=== PATIENT | female | born 1940 | race Caucasian/White ===

== ENCOUNTER 2016-06-03 15:14 | Observation (INO) | payer MEDICARE, BC ==
[~2016-06-03] VITALS: Ht 170.2 cm; Wt 77.5 kg
--- NOTE | ~2016-06-03 | HEMODYNAMI ---
PATIENT:CARLOS MARCH MEDICAL RECORD: [id number] : 40 [facility] ADMISSION DATE: 06/03/16 Generatedon:06/04/201617:06 Patient name: CARLOS MARCH Patient #: [id number] SSN: : 1940 Date of study: 06/04/2016 Page: Of Hemodynamic Procedure Report Patient Data Patient Demographics Procedure consent was obtained First Name: CARLOS Gender: Female Last Name: ANCA : 1940 [facility] Initial: F Age: 75 year(s) Patient #: [id number] Race: Additional ID: [id number] Contact details [address]: [address] [place] [address] 41 State: [place] City: [place] Zip code: [address] Past Medical History Allergies Allergen Reaction Date Comments Reported Demerol 06/04/2016 Other allergy 06/04/2016 Dilaudid Admission Admission Data Admission Date: 06/03/2016 Admission Time: 21:01 Admit Source: Emergency Insurance Payor: Private department health insurance, Medicare Room #: D.2137 Height (in.): 67 BSA: 1.87 (m2) Height (cm.): 170.18 BMI: 26.21 (kg/m2) Weight (lbs.): 167.35 Weight (kg.): 75.91 Medications upon Admission Medications Dosage Times Administered Last Remarks per Delivery Day Date and Time Aspirin Yes 06/04/2016 (any) 0:00 Clopidogrel Yes 06/04/2016 0:00 Lab Results Lab Result Date: 06/04/2016 Lab Result Time: 0:00 Biochemistry Name Units Result Min Max Creatinine mg/dl 1.2 --(---*)-- 0.6 1.3 Procedure Procedure Types Cath Procedure Diagnostic Procedure LHC LHC w/Coronaries Procedure Description Procedure Date Procedure Date: 06/04/2016 Procedure Start Time: 16:50 Procedure End Time: 17:02 Procedure Staff Name Function Casey Garcia MD Performing Physician Hyun Holder RT Scrub Buffie Gonzalez RN Nurse Richmond Hawkins RT Monitor Procedure Data Cath Procedure Fluoroscopy Diagnostic fluoroscopy Total fluoroscopy Time: 1.5 time: 1.5 min min Diagnostic fluoroscopy Total fluoroscopy dose: 276 dose: 276 mGy mGy Contrast Material Contrast Material Type Amount (ml) Isovue 300 58 Entry Location Entry Primary Successful Side Size Upsize Upsize Entry Closure Succes sful Closure Location (Fr) 1 (Fr) 2 (Fr) Remarks Device Remarks Femoral Right 5 Fr Exoseal artery Diagnostic catheters Device Type Used For End Catheter Placement Cordis 5Fr Pigtail LV Angiography Catheter (MP) Cordis 5Fr JL 4.0 Left Coronary Catheter (MP) Angiography Cordis 5Fr 3DRC Catheter Right Coronary (MP) Angiography Procedure Complications No complications Procedure Medications Medication Administration Route Dosage Oxygen NC 2 l/min Lidocaine 2% added to field 20 Heparin Flush Bag added to field 2 bags (1000units/500ml NS) 0.9% NaCl I.V. 100 ml/hr Versed I.V. 1 mg Fentanyl I.V. 50 mcg Versed I.V. 1 mg Fentanyl I.V. 50 mcg Versed I.V. 1 mg Fentanyl I.V. 50 mcg Versed I.V. 1 mg Fentanyl I.V. 50 mcg Versed I.V. 1 mg Versed I.V. 1 mg Hemodynamics Rest BSA: 1.87 (m2) HGB: 11.9 (g/dl) O2 Consumption: Estimated: 166.99 (ml/min) O2 Co nsumption indexed: Estimated:89.3 (ml/min/m) Heart Rate: 66 (bpm) Pressure Samples Time Site Value (mmHg) Purpose Heart Use Rate(bpm) 16:53 LV 159/10,14 EDP 61 Gradients Valve Time Site Site Mean SEP/DFP Peak To Heart Use 1 2 (mmHg) (sec/min) Peak Rate (mmHg) (bpm) Aortic 16:54 LV AO 64 Snapshots Pre Cath Intra NCS Post Cath Vital Signs Time Heart Resp SPO2 etCO2 [id number] NIBP (mmHg) Rhythm Pain Sedation Rate (ipm) (%) (mmHg) (mmHg) Status Level (bpm) 16:37:51 62 17 100 0 0 149/69(116) NSR 0 (11) 10(A) , No pain 16:42:13 64 19 96 0 0 129/67(99) NSR 0 (11) 10(A) , No pain 16:46:29 57 17 94 0 0 145/60(121) NSR 0 (11) 10(A) , No pain 16:50:45 54 16 95 0 0 127/56(110) NSR 0 (11) 9(A) , No pain 16:54:59 71 16 96 0 0 133/64(100) NSR 0 (11) 9(A) , No pain 16:59:15 71 15 94 0 0 118/63(87) NSR 0 (11) 9(A) , No pain 17:03:27 63 16 96 0 0 119/62(95) NSR 0 (11) 9(A) , No pain 17:05:57 60 16 97 0 0 117/54(95) NSR 0 (11) 10(A) , No pain Medications Time Medication Route Dose Verified Delivered Reason Notes Effe ctiveness by by 16:34:38 Oxygen NC 2 Casey Buffie used for l/min JoseWayne Gonzalez credit review analyst 16:36:29 Lidocaine 2% added 20ml Casey Casey for local to vial [facility] anesthetic field MD MOLINA 16:36:34 Heparin Flush added 2 Casey Casey used for Bag to bags [facility] procedure (1000units/500ml field MD MOLINA NS) 16:36:44 0.9% NaCl I.V. 100 Casey Buffie Per ml/hr JoseWayne Gonzalez RN physician 16:41:45 Versed I.V. 1 mg Casey Buffie for JoseWayne Gonzalez RN sedation 16:41:51 Fentanyl I.V. 50 Casey Buffie for mcg [place] Gonzalez RN sedation 16:45:30 Versed I.V. 1 mg Casey Buffie for Jose Gonzalez RN sedation 16:45:35 Fentanyl I.V. 50 Casey Buffie for mcg [place] Gonzalez RN sedation 16:51:38 Versed I.V. 1 mg [facility] 16:51:46 Fentanyl I.V. 50 Casey Buffie for mcg [place] Gonzalez RN sedation 16:54:43 Versed I.V. 1 mg Casey Buffie for Jose Gonzalez RN sedation 16:54:48 Fentanyl I.V. [address] for mcg [facility] [place] Gonzalez RN sedation 16:57:51 Versed I.V. [address] [facility] [place] Gonzalez RN sedation 17:00:56 Versed I.V. 1 [address] [facility] [place] Gonzalez RN sedation Procedure Log Time Note 16:11:47 Thang Gonzalez RN sent for patient. Start room use. 16:11:49 Time tracking: Regular hours 16:11:53 Plan of Care:Hemodynamics will remain stable., Cardiac rhythm will remain stable., Comfort level will be maintained., Respiratory function will remain adequate., Patient/ family verbilizes understanding of procedure., Procedure tolerated without complication., Recovers from procedure without complications.. 16:14:59 Admit Source: Emergency department 16:15:12 Patient Height : 67 inches 16:15:16 Patient Weight : 167.35 lbs 16:18:30 Insurance Payor : Private health insurance, Medicare 16:19:15 Patient allergic to Demerol 16:19:24 Patient allergic to Other allergyDilaudid 16:23:06 Lab Result : Hemoglobin 11.9 g/dl 16:23:17 Lab Result : Creatinine 1.2 mg/dl 16:23:20 Diagnostic Cath Status : Urgent 16:25:15 Patient received from PCU to CCL 2 Alert and oriented. Tansferred to table in Supine position. 16:25:16 Warm blankets applied, and isaias hugger turned on for patient comfort. 16:25:16 Correct patient and procedure confirmed by team. 16:25:18 Signed procedure consent form obtained from patient. 16:25:18 ECG and BP/O2 sat monitors applied to patient. 16:34:38 Oxygen 2 l/min NC was given by Thang Gonzalez RN; used for procedure; 16:36:29 Lidocaine 2% 20ml vial added to field was given by Casey Garcia MD; for local anesthetic; 16:36:34 Heparin Flush Bag (1000units/500ml NS) 2 bags added to field was given by Casey Garcia MD; used for procedure; 16:36:43 Vital chart was started 16:36:44 0.9% NaCl 100 ml/hr I.V. was given by Thang Gonzalez RN; Per physician; 16:36:45 Baseline sample Acquired. 16:36:49 Rhythm: sinus rhythm 16:36:50 Full Disclosure recording started 16:38:06 H&P Date Dictated: 06/03/2016 Within 30 days and on chart.. 16:38:07 Pre-procedure instructions explained to patient. 16:38:08 Pre-op teaching completed and patient verbalized understanding. 16:38:12 Family in patients room. 16:38:14 Patient NPO since Midnight. 16:38:16 Is the patient allergic to Iodine/contrast media? No. 16:38:18 Is patient on blood thinner?No 16:38:21 Patient diabetic? Yes. 16:38:45 If diabetic: On Metformin? Yes 16:38:46 If on Metformin: Last Dose? 06/04/2016 16:38:49 Previous problem with sedation/anesthesia? No ? 16:38:50 Snore? No 16:38:51 Sleep apnea? No 16:38:52 Deviated septum? No 16:38:52 Opens mouth fully? Yes 16:38:53 Sticks out tongue? Yes 16:38:55 Airway obstruction? No ? 16:39:03 Dentures? No ? 16:39:06 Modified Rolando's test Ulnar < 7 seconds 16:39:09 Patient pain scale 0/10 ?. 16:39:14 IV patent on arrival in right forearm with 0.9% NaCl at [facility]. 16:39:19 Lab results completed and on chart. 16:39:22 Right Radial & Right Groin area was prepped with chlora-prep and draped in sterile fashion 16:39:23 Alarms reviewed by R. N. 16:39:23 Sharps counted by scrub and verified by R.N. 16:39:26 Use device set Radial Dx 16:39:27 Tegaderm 4 x 4 opened to sterile field. 16:39:28 Acist Manifold opened to sterile field. 16:39:28 Acist Hand Control opened to sterile field. 16:39:30 Acist Syringe opened to sterile field. 16:39:30 Cardinal Cath Pack opened to sterile field. 16:39:32 Bag Decanter opened to sterile field. 16:39:32 Terumo 6Fr Slender Glidesheath opened to sterile field. 16:39:33 St Shiraz 260cm J .035 wire opened to sterile field. 16:39:39 ACC Patient presents with Unstable Angina CCS Anginal Class 3--Marked limitation of physical activity, angina occurs with ordinary activity.. 16:39:44 Physician arrived 16:39:45 --------ALL STOP TIME OUT------ 16:39:45 Final Timeout: patient, procedure, and site verified with staff and physician. All members of the team are in agreement. 16:39:47 Right Radial & Right Groin site verified by team. 16:39:49 Physical assessment completed. ASA score P 2 - A patient with mild systemic disease as per Casey Garcia MD. 16:39:51 Sedation plan: IV Moderate Sedation Versed, Fentanyl 16:41:45 Versed 1 mg I.V. was given by Thang Gonzalez RN; for sedation; 16:41:51 Fentanyl 50 mcg I.V. was given by Thang Gonzalez RN; for sedation; 16:45:30 Versed 1 mg I.V. was given by Thang Gonzalez RN; for sedation; 16:45:35 Fentanyl 50 mcg I.V. was given by Thang Gonzalez RN; for sedation; 16:50:12 Procedure started. 16:50:17 Local anesthetic to right radial artery with Lidocaine 2% by Casey Garcia MD.INITIAL ACCESS ONLY 16:50:24 Local anesthetic to right femoral artery with Lidocaine 2% by Casey Garcia MD.ADDITIONAL ACCESS 16:50:34 A 5 Fr sheath was inserted into the Right Femoral artery 16:50:51 PT HAS RADIAL LOOP 16:51:01 Use device set Multipack Set 16:51:05 Cordis Infinity 5Fr Multipack catheter opened to sterile field. 16:51:11 Terumo 5Fr [place] Sheath opened to sterile field. 16:51:38 Versed 1 mg I.V. was given by Thang Gonzalez RN; for sedation; 16:51:46 Fentanyl 50 mcg I.V. was given by Thang Gonzalez RN; for sedation; 16:52:11 Zero performed for pressure channel P1 16:53:09 A Cordis 5Fr Pigtail Catheter (MP) was advanced over the wire and used for LV Angiography. 16:53:13 LV angiography performed. 16:53:17 LV gram done using GUTIERREZ 16:53:22 LV hemodynamics recorded. 16:53:26 Injector settings: Ml/sec: 10, Volume: 20, 16:54:08 EF : 55 % 16:54:10 Catheter removed. 16:54:15 A Cordis 5Fr JL 4.0 Catheter (MP) was advanced over the wire and used for Left Coronary Angiography. 16:54:43 Versed 1 mg I.V. was given by Thang Gonzalez RN; for sedation; 16:54:48 Fentanyl 50 mcg I.V. was given by Thang Gonzalez RN; for sedation; 16:55:04 LCA angiography performed. 16:56:50 Catheter removed. 16:56:57 A Cordis 5Fr 3DRC Catheter (MP) was advanced over the wire and used for Right Coronary Angiography. 16:57:51 Versed 1 mg I.V. was given by Thang Gonzalez RN; for sedation; 16:58:14 RCA angiography performed. 16:58:16 Catheter removed. 16:58:23 Contrast amount:Isovue 300 58ml. 16:58:52 Sheath removed intact; hemostasis achieved with Exoseal to the Right Femoral artery. 16:58:55 Procedure ended.(Physican Out) 16:59:57 Fluoroscopy time 01.50 minutes. 17:00:02 Fluoroscopy dose: 276 mGy 17:00:02 Flurop Dose total: 276 17:00:04 Sharps counted by scrub and verified by R.N. 17:00:04 Insertion/operative site no bleeding no hematoma. 17:00:07 Post-op/insertion site Right Femoral artery dressed using a 4 x 4 and Tegaderm. 17:00:11 Post right femoral artery:stable 17:00:12 Post Procedure Pulses reassessed and unchanged 17:00:15 Post procedure: right dorsailis pedis pulse 1+ Palpable, but thready & weak; easily obliterated. 17:00:20 Post procedure rhythm: sinus rhythm 17:00:22 Post procedure instruction explained to patient.Patient verbalizes understanding. 17:00:31 Cordis 5Fr Exoseal opened to sterile field. 17:00:56 Versed 1 mg I.V. was given by Thang Gonzalez RN; for sedation; 17:02:39 Procedure and supply charges have been captured, reviewed, submitted and are correct. 17::43 Procedure Complication : No complications 17:02:45 Vital chart was stopped 17:02:45 See physician's report for complete and final results. 17:02:46 Report given to PCU. 17:02:49 Patient transfered to PCU with Bed. 17:02:51 Procedure ended. 17:02:51 Full Disclosure recording stopped 17:02:54 End room use (Document Last) Device Usage Item Name Manufacture Quantity Catalog Hospital Part Current Minimal Lot# / Number Charge Number Stock Stock Serial# Code Tegaderm 4 3M 1 [id number] 026463 397134 5 x 4 Acist Acist 1 92962 747342 998907 309065 5 Manifold Medical Systems Inc Acist Hand Acist 1 09894 627976 643153 881648 5 Control Medical Systems Inc Acist Acist 1 06407 050507 553446 925657 20 Syringe Medical Systems Inc Cardinal Cardinal 1 [id number] 496735 28708 300387 5 Cath Pack Health Bag Microtek 1 2002S 611063 76786 636229 5 DecSOLOMO Technology [employer] Inc. Terumo 6Fr Terumo 1 [id number] 603832 092863 639907 [address] St Shiraz 1 540530 556157 407921 817468 30 260cm J .035 wire Cordis Cardinal 1 [id number] 684153 95095 879030 30 Infinity Health 5Fr Multipack catheter Terumo 5Fr Terumo 1 [id number] 241267 230053 986538 40 [place] Sheath Cordis 5Fr Cardinal 1 694834 5 Pigtail Health Catheter (MP) Cordis 5Fr Cardinal 1 884073 5 JL 4.0 Health Catheter (MP) Cordis 5Fr Cardinal 1 213389 5 3DRC Health Catheter (MP) Cordis 5Fr Cardinal 1 EX500 151724 778892 166628 10 [email or web address] Signature Audit [place] Stage Time Signature Unsigned Intra-Procedure 06/04/2016 Richmond Hawkins 5:06:48 PM RT(R) Signatures Monitor : Richmond Hawkins RT Signature : Date : Time : [id number] [place] [address]
[~2016-06-03 15:14] MED LIST: ACIDOPHILUS LAC1 CAP PO; ACTOS15 MG PO; ARMOUR THYROID90 MG PO; AUGMENTIN 875-11 TAB PO; BAYER CHEWABLE81 MG PO; CALCIUM 600 +1 EAC3 PO; EXELON PO; FLAGYL500 MG PO; GLUCOPHAGE500 MG PO; GLUCOSAMINE & C1 CAP PO; LUTEIN20 MG PO; MACROBID100 MG PO; METAMUCIL PACKE1 PKT PO; MULTIPLE VITAMI1 TA1 PO; PRAVACHOL20 MG PO; VITAMIN D3400 UNI1 PO; ZANTAC150 MG PO; ZOFRAN4 MG PO
[2016-06-03 20:04] LABS: BASOPHILS 0.4 % (0.0-2.0); HEMOGLOBIN 11.9 g/dL (12-16); IMMATURE GRANULOCYTES 0.1 % (0-5); LYMPHOCYTES 41.4 % (15-50); MCH 29.7 pg (26.0-34.0); MCHC 32.2 g/dL (31.0-37.0); MCV 92.3 fL (80.0-100.0); MEAN PLATELET VOLUME 8.6 fL (7.4-10.4); MONOCYTES 9.5 % (2-11); NEUTROPHILS 45.6 % (40-80); PLATELET COUNT 230 10x3/uL (130-400); RBC 4.01 10x6/uL (4.00-5.40); RDW 15.6 % (11.5-14.5)
[2016-06-03 20:28] LABS: CALC OSMOLALITY 285 mosm/kg (275-300); CALCIUM 9.4 mg/dL (8.5-10.1); CARBON DIOXIDE 28.3 mmol/L (21.0-32.0); CHLORIDE - SERUM 102 mmol/L (98-107); CREATININE - SERUM 1.1 mg/dL (0.6-1.3); GLUCOSE 130 mg/dL (74-106); POTASSIUM - SERUM 4.2 mmol/L (3.5-5.1); SODIUM 140 mmol/L (136-145); UREA NITROGEN 27 mg/dL (7-18); eGFR NON AFRICAN AMERICAN 51 mL/min (90-120)
[2016-06-03 20:29] LABS: TROPONIN-I < 0.017 ng/mL (0.000-0.060)
--- NOTE | 2016-06-03 22:30 | NUR ---
RECEIVED TO ROOM 2137 ALERT AND ORIENTED X3 74 Y/O FEMALE SEEN BY DR SHER FOR SYNCOPY VIA W/C FROM ER. ORIENTATION TO UNIT ROOM, BED, C/L. BATHROOM, AND TV GIVEN WITH UNDERSTANDING VERBALIZED. HOB UP SR UP X2, C/L IN REACH. CONTINUE TO MONITOR.
[2016-06-03 23:15] VITALS: BP 141/57
[2016-06-04] MEDS ORDERED: PRAVACHOL20 MG PO (00:07)
--- NOTE | 2016-06-04 00:11 | NUR ---
LYING ON LEFT SIDE IN BED READING, RESP EVEN AND UNLAB, ON ROOM AIR W/O DIFF. TELEMETRY IN PLACE SHOWING HR SR PER SHOT POLISHER. UP AD LUCINDA W/O DIFF. VOICES NO C/O PAIN OR DISCOMFORT AT THIS TIME. CONTINUE TO MONITOR. C/L IN REACH.
[2016-06-04 01:11] VITALS: Ht 170.2 cm; Wt 77.5 kg
[2016-06-04 01:44] VITALS: BP 136/57
--- NOTE | 2016-06-04 03:16 | NUR ---
AWAKE, ALERT, GETTING BLOOD DRAWN FOR AM LAB. GENI WELL. C/L IN REACH.
[2016-06-04 06:10] VITALS: BP 117/44
[2016-06-04 08:08] VITALS: BP 145/63
--- NOTE | 2016-06-04 08:26 | NUR ---
PROVIDED PT WITH MORNING MEDICATIONS. SHIFT ASSESSMENT COMPLETED. CONSENTS OBTAINED FOR HEART CATH. PT RESTING QUIETLY IN BED. DENIES ANY CURRENT PAIN OR NEEDS. CL IN REACH. WILL CPOC.
[2016-06-04 08:28] LABS: ANION GAP 16.7 mmol/L (8-16); CALCIUM 9.3 mg/dL (8.5-10.1); CARBON DIOXIDE 23.8 mmol/L (21.0-32.0); CREATININE - SERUM 1.2 mg/dL (0.6-1.3); POTASSIUM - SERUM 4.5 mmol/L (3.5-5.1)
[2016-06-04 11:39] VITALS: BP 130/52
--- NOTE | 2016-06-04 13:07 | NUR ---
PREOP CALLED AND COMPLETED. PT REFUSED HER VALIUM R/T FEELING TOO "LOOPY" PT HAS NS WITH EXTENSION TUBING TO R.FA PIV WITH DRSG CDI AND SWAB CAPS IN USE. PT AWAITING DRY WALL INSTALLER. NO FURTHER NEEDS. WILL CPOC.
[2016-06-04 15:42] VITALS: BP 104/45
--- NOTE | 2016-06-04 19:30 | NUR ---
ASSESSMENT COMPLETE, DENIES NEEDS AT THIS TIME. ALERT AND ORIENTED X3, RESP EVEN AND UNLAB WITH TELEMETRY SHOWING HR SR PER SIEBEL DEVELOPER. RT GROIN DRSG CDI PPP BILAT WITH SKIN WARM AND DRY. RT FA SL INTACT WITH NO R/S NOTED AT SITE. UP AD LUCINDA W/O DIFF. NO SCDS BEING WORN AT THIS TIME. CONTINUE TO MONITOR. C/L IN REACH.
[2016-06-04 20:11] VITALS: BP 145/56
--- NOTE | 2016-06-05 01:51 | NUR ---
EYES CLOSED, RESP EVEN AND UNLAB WITH NO S/S OF ACUTE DISTRESS NOTED. C/L IN REACH.
[2016-06-05 02:18] VITALS: BP 131/62
[2016-06-05 05:05] LABS: BASOPHILS 0.4 % (0.0-2.0); EOSINOPHILS 3.9 % (0-7); HEMATOCRIT 37.4 % (36.0-48.0); HEMOGLOBIN 11.8 g/dL (12-16); LYMPHOCYTES 31.4 % (15-50); MCH 28.9 pg (26.0-34.0); MCHC 31.6 g/dL (31.0-37.0); MCV 91.4 fL (80.0-100.0); MEAN PLATELET VOLUME 8.6 fL (7.4-10.4); MONOCYTES 9.8 % (2-11); NEUTROPHILS 54.5 % (40-80); PLATELET COUNT 221 10x3/uL (130-400); RBC 4.09 10x6/uL (4.00-5.40); RDW 15.1 % (11.5-14.5); WBC 5.7 10x3/uL (4.8-10.8)
[2016-06-05 05:37] LABS: ALBUMIN 3.1 g/dL (3.4-5.0); ANION GAP 10.2 mmol/L (8-16); BILIRUBIN - TOTAL 0.3 mg/dL (0.2-1.3); CALCIUM 8.4 mg/dL (8.5-10.1); CARBON DIOXIDE 29.3 mmol/L (21.0-32.0); POTASSIUM - SERUM 4.5 mmol/L (3.5-5.1); PROTEIN - SERUM 6.2 g/dL (6.4-8.2)
[2016-06-05 06:42] VITALS: BP 146/59
--- NOTE | 2016-06-05 08:09 | NUR ---
ASSESSMENT DONE. PT A/O. NO DISTRESS NOTED. NPO FOR CTA OF CAROTID. PT REQUEST NURSE CALL GEOPHYSICAL PROSPECTOR AND ASK DIVERSIFIED CROPS SUPERVISOR TO BRING HER A FEW BOOKS. CALL LIGHT WITH IN REACH. WILL CONT. TO MONITOR.
[2016-06-05 08:56] VITALS: BP 151/57
--- NOTE | 2016-06-05 09:35 | NUR ---
RESTS IN BED WITH CALL LIGHT IN REACH. NO NEEDS VOICED AT THIS TIME. WILL MONITOR.
--- NOTE | 2016-06-05 10:26 | NUR ---
IV TO RIGHT FOREARM INFILTRATED. RESITED TO RIGHT FOREARM WITH 20G X1 ATTEMPT.
[2016-06-05 12:28] VITALS: BP 132/58
--- NOTE | 2016-06-05 14:23 | NUR ---
PT HAD CTA, AND IS NOW SITTING UP IN BED EATING. SHE WANTS A SHOWER AFTER SHE IS FINISHED EATING, BUT WANTS AID TO SHOWER HER. PT IS A/O, AND WALKS WITH A STEADY GAIT. SHE WAS C/O EARLY THIS MORNING ABOUT WANTING TO GO HOME BECAUSE SHE "FELT PERFECT." AID AND NURSE TOLD PT THAT WE WOULD SET UP HER SUPPLIES FOR THE SHOWER, AND SHE COULD SHOWER HERSELF BUT IF SHE BECAME WEAK OR IN DISTRESS THERE WAS A STRING SHE COULD PULL IN THE BATHROOM THAT WOULD CALL FOR HELP. ALSO OFFER TO SET PT UP WITH A BED BATH. PT DID NOT RESPOND TO EITHER OPTION.
[2016-06-05 15:44] VITALS: BP 111/87
--- NOTE | 2016-06-05 16:36 | NUR ---
RATIONAL FOR SCD'S EXPLAINED TO PT. PT REFUSED SCD'S.
--- NOTE | 2016-06-05 20:55 | NUR ---
SPOKE WITH DR CORONADO, EXPAINED THAT PT IS INSISTING ON GETTING EYES DROPS, THAT PT STATES THAT SHE HAS A HISTORY OF MACULAR DEGENERATION AND WILL GO BLIND WITH OUT HER A-RED EYE DROPS, ALSO EXPALINED THAT OUR PHARMACY DOESNT CARRY A-RED BUT HAS A FORMULARY SUBSTITUTE (SYSTANE). ORDERS GIVEN OF TO GIVE SYSTANE EYE DROPS.
--- NOTE | 2016-06-05 21:05 | NUR ---
INFORMED PT THAT I SPOKE WITH DR TARIQ AND GOT AN ORDER FOR EYE DROPS, PT STATED THAT SHE DOESNT TAKE EYE DROPS, THAT SHE TAKES A PILL CALLED A-RED AND THAT THE DOCTOR ALREADY ORDERED HER OCUVITE AND SHE JUST NEEDED HER FIRST DOSE.
--- NOTE | 2016-06-05 21:09 | NUR ---
HS MEDS GIVEN WITH FRESH ICE WATER. PT STATED THAT SHE HAS ALREADY RECIEVED THE OCCUVIT TAB EARLIER TODAY BUT DIDNT REALIZE WHAT IT WAS AND THAT SHE NO LONGER NEEDED EYE DROPS.
[2016-06-05 22:30] VITALS: BP 142/53
[2016-06-06 01:21] VITALS: BP 113/44
--- NOTE | 2016-06-06 04:20 | NUR ---
LYING IN BED WITH EYES CLOSED, CALL LIGHT IN REACH. WILL CONTINUE WITH PLAN OF CARE.
[2016-06-06 05:07] LABS: ANION GAP 7.8 mmol/L (8-16); CALCIUM 8.8 mg/dL (8.5-10.1); CREATININE - SERUM 1.1 mg/dL (0.6-1.3); POTASSIUM - SERUM 4.8 mmol/L (3.5-5.1)
[2016-06-06 05:09] LABS: APTT 28.5 SECONDS (22.8-39.4); INR 1.06 (0.85-1.17); PROTIME 13.7 SECONDS (11.6-15.0)
--- NOTE | 2016-06-06 05:22 | NUR ---
RESTING WITH EYES CLOSED, RESPERATIONS EVEN, NO S/S DISTRESS NOTED.
[2016-06-06 05:59] VITALS: BP 146/56
[2016-06-06] MEDS ORDERED: ASPIRIN325 MG PO (06:57)
[2016-06-06 07:49] VITALS: BP 127/52
--- NOTE | 2016-06-06 08:05 | NUR ---
AM ROUNDING- PT SITTING UP IN BED READING HER BOOK. PT IS STATING SHE IS GOING HOME TODAY. PT TOOK HEART MONITOR OFF BECAUSE SHE SAID SHE IS GOING HOME AND THE DOCTOR STATED SHE DIDN'T HAVE A "HEART PROBLEM" AND SHE DID NOT NEED HER MONITOR. PT REFUSES SCD'S. UP AD LUCINDA. ALERT AND ORIENTED. IV SEEN TO LEFT FOREARM THAT IS SALINE LOCKED AND PATENT. NO NEED AT CURRENT TIME. WILL CONTINUE TO MONITOR.
--- NOTE | 2016-06-06 09:49 | NUR ---
Patient Name: CARLOS MARCH Admission Status: ER Accout number: [id number] Admission Date: 06-05-2016 : 1940 Admission Diagnosis: Attending: LUIS Current LOS: 1 Anticipated DC Date: 06-06-2016 Planned Disposition: Home Primary Insurance: MEDICARE A & B Discharge Planning Comments: * Is the patient Alert and Oriented? Yes 0 * How many steps to enter\exit or inside your home? NONE 0 * PCP DR. SHER 0 * Pharmacy [facility] 0 * Preadmission Environment Home Alone 0 * ADLs Independent 0 * Equipment None 0 * Other Equipment [facility] MEDICAL EQUIPMENT PROVID[facility] 0 * List name and contact numbers for known caregivers / representatives who currently or will assist patient after discharge: ROWAN LAY, FRIEND, 0 * Community resources currently utilized None 0 * Please name any agencies selected above. NONE 0 * Additional services required to return to the preadmission environment? No 0 * Can the patient safely return to the preadmission environment? Yes 0 * Has this patient been hospitalized within the prior 30 days at any hospital? No 0 CM MET WITH PT IN ROOM TO DISCUSS DISCHARGE PLANNING AND NEEDS. PT REPORTS LIVING AT HOME INDEPENDENTLY AND ALONE. PT HAS NO MEDICAL EQUIPMENT AND NO OUTSIDE SERVICES ASSISTING IN THE HOME. CM DISCUSSED AVAILABILITY OF HOME HEALTH, REHAB SERVICES AND MEDICAL EQUIPMENT. PT DENIES DISCHARGE NEEDS, WILL CALL DR. SHER IF SHE FEELS SHE NEEDS ANY HOME HEALTH LATER ON. PT REPORTS HER NEIGHBOR WILL PICK HER UP FOR DISCHARGE HOME. IMPORTANT MESSAGE FROM MEDICARE PROVIDED AND EXPLAINED. Contract Modeler: Darion Kapoor
[2016-06-06] MEDS ORDERED: GLUCOPHAGE500 MG PO (10:10)
[2016-06-06] MEDS ORDERED: ACTOS15 MG PO (10:11)
--- NOTE | 2016-06-06 10:34 | NUR ---
RUFUS HAMILTON, SLAB INSTALLER STATED THAT SHE REMOVED PTS IV CATHETER TO LEFT FOREARM WITH CATH TIP INTACT. PT IS TO D/C HOME TODAY AND REQUESTED IV TO COME OUT.
--- NOTE | 2016-06-06 10:42 | NUR ---
EXPLAINED PTS D/C PAPERWORK TO PT. D/C PAPERWORK SIGNED AND DATED AND PLACED IN CHART. 1043- PT D/C HOME VIA WHEELCHAIR.
--- NOTE | 2016-06-07 13:36 | OP ---
PATIENT NAME: CARLOS MARCH MEDICAL RECORD: [id number] :40 LOCATION:D.M2 D.2137 ADMISSION DATE:06/05/16 SURGEON: CARLOS HOOD MD DATE OF OPERATION: 06/04/2016 PROCEDURE: Left heart catheterization, selective coronary angiography, right femoral approach. CATHETERS: A 5-Macedonian sheath, 5/4 left and right Kenyatta, 5/4 pig. The procedure was well tolerated. The patient returned to the domínguez, sheath removed. Adequate hemostasis was obtained. FINDINGS: Left ventriculography in 30-degree GUTIERREZ view: Normal wall motion, normal systolic function. CORONARY ANATOMY: LEFT MAIN: Left main is free of disease. LAD: LAD free in the diagonal system. CIRCUMFLEX: Free of disease in the marginal system. RIGHT CORONARY ARTERY: Dominant artery, gives rise to PDA, free of disease. IMPRESSION: Normal systolic function. Normal coronary anatomy. TRANSINT:[id number] Voice Confirmation ID: [id number] DOCUMENT ID: [id number] CARLOS HOOD MD at 1336 CC: [id number] DICTATION DATE: 06/04/16 1706 CONFLICT RESOLUTION PROFESSIONAL: 06/04/16 2151 DIS IN 06/06/16 [id number] [place] [address]
--- NOTE | 2016-06-12 13:16 | EC ---
PATIENT:CARLOS MARCH DATE OF SERVICE: 06/03/16 SEX: F MEDICAL RECORD: [id number] DATE OF : [birth year] LOCATION:D.M2 D.213 AGE OF PATIENT: 75 ADMISSION DATE: 06/03/16 REFERRING PHYSICIAN: INTERPRETING PHYSICIAN: JOSE BATES M.D. ECHOCARDIOGRAM REPORT ECHO CHARGES 4 ECHO COMPLETE CLINICAL DIAGNOSIS: CHEST PAIN ECHOCARDIOGRAPHIC MEASUREMENTS (adult normal given) AC root (d.<3.7cm) 3.8 LV Septum d (<1.2 cm> 1.5 Valve Excursion 1.7 LV Septum (systole) 1.7 Left Atria (s.<4.0cm> 4.0 LVPW d(<1.2cm) 1.3 RV (d.<2.3cm) 4.4 LVPW (sytole) 1.7 LV diastole(<5.6CM) 4.7 MV E-F(>70mm/sec) LV systole 3.4 LVOT Diameter 2.0 MV exc.(>10mm) 1.5 Est.ejection fraction (50-75%) Pericardial Effusion N DOPPLER: LVIT A 110 E 62.0 LA RVSP 40 LVOT 104 AOP1/2T 1141 Asc. Ao 128 RVOT 78 RA PA 14 AV Gradient Peak 6.59 AV Mean 3.15 AV Area 2.5 MV Gradient Peak 5.0 MV Mean 1.52 MV Area COMMENTS: Bearing Inspector: Buck ROSARIO Industrial Furnace Fabricator:2 Dr. Bates TAPE# PACS DATE OF SERVICE: 06/04/2016 REFERRING PHYSICIAN: Charan Aquino DO. INDICATION: Chest pain. DESCRIPTION: Left ventricle demonstrates left ventricular hypertrophy. No wall motion abnormalities are seen. Estimated ejection fraction is 50% to 55%. Mitral valve is structurally normal. There is mild regurgitation noted. Left atrium is mildly dilated. The aortic valve is trileaflet. There is mild ECHOCARDIOGRAM REPORT [id number] CARLOS MARCH insufficiency seen, but no evidence of stenosis. Right ventricle is mildly dilated. Tricuspid valve is structurally normal. There is mild to moderate regurgitation noted. Right ventricular systolic pressure is elevated at 40 mmHg. There is no pericardial effusion noted. IMPRESSION: 1. Left ventricular hypertrophy with preserved ejection of 50% to 55%. 2. Mild mitral regurgitation. 3. Mild aortic insufficiency. 4. Mild to moderate tricuspid regurgitation with elevated pulmonary pressures. TRANSINT:[id number] Voice Confirmation ID: [id number] DOCUMENT ID: [id number] JOSE BATES M.D. at 1316 CC: [id number] DICTATION DATE: 06/04/16 1609 FISHING FLOATS ASSEMBLER: 06/04/162222 DIS IN 06/06/16 [id number] [place] [id number]
[2016-06-17] MEDS ORDERED: FISH OIL 1,0001 CA1 PO (13:04)
[2016-06-17] MEDS ORDERED: AREDS 2 PO (13:06)
[2016-06-17] MEDS ORDERED: METAMUCIL1042 GM PO (13:07)
[2016-06-17] MEDS ORDERED: ZANTAC150 MG PO (13:08)
[2016-06-17] MEDS ORDERED: TUMS500 MG PO (13:09)
[2016-06-17] MEDS ORDERED: GLUCOPHAGE500 MG PO (13:10)
== END 2016-06-06 10:43 | disposition home or self-care (01) ==
LOC: D.ER 15:14 → OBSVTIME 21:01 → D.M2 21:01
PROVIDERS: Emergency Medicine; Family Medicine; Internal Medicine Cardiovascular Disease; ADMIT Family Medicine
DX: R07.89 Other chest pain (principal); R55 Syncope and collapse; H53.8 Other visual disturbances; I65.23 Occlusion and stenosis of bilateral carotid arteries; I10 Essential (primary) hypertension; H35.30 Unspecified macular degeneration; E11.9 Type 2 diabetes mellitus without complications; Z87.891 Personal history of nicotine dependence

== ENCOUNTER 2016-06-18 06:05 | Inpatient (IN) | payer MEDICARE, BC ==
--- NOTE | 2016-06-15 12:06 | HP ---
PATIENT: CARLOS MARCH MEDICAL RECORD: [id number] ACCOUNT: [id number] LOCATION:[facility] : 40 ADMISSION DATE: 06/18/16 HISTORY AND PHYSICAL EXAMINATION CARLOS King (75yo, F) ID# [id number]. Date/Time06/10/2016 10:58OPXSZ11/13/1941Service Dept.NP_[facility] ClinicProviderEDJULIO CESAR ENCISO MDInsuranceMed Primary: [place] ([place]) Insurance # : [id number] Referring Provider Name : GIANA SHER Employer Name : RETIRED Med Secondary: [place] Insurance # : [id number] Policy/Group # : [id number] Referring Provider Name : GIANA SHER Employer Name : RETIRED Prescription: [place] - Member is eligible. Chief Complaint Carotid stenosis CTA carotid Patient's Care Team Referring Provider (): GIANA SHER: [address] [place] [phone], , News Broadcaster: CARLOS HOOD MD Patient's Pharmacies [facility] ([facility]): [address] [facility] [id number], , Vitals BP:132/82 sitting R arm 06/10/2016 10:12 am 140/70 sitting L arm 06/10/2016 10:12 amHR:80R/R 06/10/2016 10:13 amHt:5 ft 8 in 06/10/2016 10:12 amWt:168 lbs 06/10/2016 10:10 amNotes:murmur 06/10/2016 10:13 amBMI:25.5 06/10/2016 10:12 amAllergies Reviewed Allergies CODEINEDONEPEZILLEVAQUINLISINOPRILSYNTHROIDMedications Reviewed Medications Calcium 600 + D(3) 600 mg (1,500 mg)-400 unit tablet Take 2 tablet(s) every day by oral route.06/07/16 enteredCindy Browncholecalciferol (vitamin D3) 400 unit capsule Take 1 capsule(s) every day by oral route.06/07/16 Alec Glaserglucosamine 116 mg-chondroitin 100 mg-dietary supplement #25 capsule Take 1 capsule(s) every day by oral route.06/07/16 enteredCinguzman BrownmetFORMIN 500 mg lfeezg73/10/17 filledPRIMEpioglitazone 15 mg zbhafn79/10/17 filledPRIMEPravachol 20 mg tablet Take 1 tablet(s) every day by oral route.06/07/16 enteredCindy Brownthyroid (pork)06/07/16 enteredCinguzman BrownProblems Reviewed Problems Carotid artery stenosis - Onset: 06/07/2016, Bilateral Family History Discussed Family History Mother- Malignant neoplastic disease - Migraine, thyroid disorderFather- Heart diseaseMaternal Grandfather- Cerebrovascular accidentPaternal Grandmother- Cerebrovascular accidentSocial History Discussed Social History HISTORY AND PHYSICAL [id number] CARLOS MARCH Cardiology Smoking Status: Former smoker High Cholesterol: Y High blood pressure: Y Marital status: Surgical History Reviewed Surgical History Removal of thyroid Hysterectomy/revise vagina 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 HPI Cerebral Vascular Disease Reported by patient. Quality: tingling ("left side"); tunnel vision; dizziness; blurred vision Aggravating Factors: position change ROS Patient reports vision change but reports no dry eyes and no irritation. She reports shortness of breath when walking but reports no chest pain, no arm pain on exertion, no shortness of breath when lying down, no palpitations, and no known heart murmur. She reports muscle aches, arthralgias/joint pain, and back pain but reports no muscle weakness and no swelling in the extremities. She reports numbness and dizziness but reports no loss of consciousness, no weakness, no seizures, and no headaches. She reports no fever, no night sweats, no significant weight gain, no significant weight loss, and no exercise intolerance. She reports no difficulty hearing and no ear pain. She reports no frequent nosebleeds and no nose/sinus problems. She reports no so r e throat, no bleeding gums, no snoring, no dry mouth, no mouth ulcers, no oral abnormalities, and no teeth problems. She reports no jugular vein distension and no swollen glands. She reports no cough, no wheezing, no shortness of breath, and no coughing u p blood. She reports no abdominal pain, no vomiting, normal appetite, no diarrhea, not vomiting blood, no nausea, and no constipation. She reports no incontinence, no difficulty urinating, no hematuria, and no increased frequency. She reports no abnormal m o le, no jaundice, and no rashes. She reports no depression, no sleep disturbances, feeling safe in relationship, and no alcohol abuse. She reports no fatigue. She reports no swollen glands and no bruising. She reports no runny nose, no sinus pressure, no i tching, no hives, and no frequent sneezing. ROS as noted in the HPI Physical Exam Patient is a 75-year-old female. Constitutional: General Appearance well nourished and developed and HISTORY AND PHYSICAL [id number] CARLOS MARCH healthy-appearing. Level of Distress NAD. Ambulation ambulating normally. Cardiovascular: Apical Impulse not displaced or no thrill. Heart Auscultation normal s1 and s2; no murmurs, rubs, or gallops; and RRR. Arterial Pulses no abdominal aorta bruits, femoral bruits, or popliteal bruits and 2+ bilateral, carotid 2+ bilateral, femoral 2+ bilateral, popliteal 2+ bilateral, and dorsalis pedis 2+ bilateral. Edema no edema or varicosities. Lungs: Repiratory Effort no dyspnea. Percussion no dullness or flatness and hyperresonance . Auscultation no wheezing, rhonchi, or rales / crackles and breathing sounds normal, good air movement, and CTA except as noted. Abdomen: Bowl Sounds normal. Inspection and Palpation no tenderness, guarding, masses, or rebound tenderness and soft and non-distended. Liver non-tender and no hepatomegaly. Spleen non-tender and no splenomegaly. Hernia none palpable. Musculoskeletal System: Gait And Stance normal gait and stance. Digits and Nails normal nails and no cyanosis. Neurologic: Cranial Nerves grossly intact. Reflexes DTRs 2+ bilaterally throughout. Sensation grossly intact. Lymph Nodes: Lymph Nodes no cervical LAD, supraclavicular LAD, axillary LAD, or inguinal LAD. Eyes: Lids and Conjunctivae no discharge or pallor and non-injected. Pupils PERRLA. Cornea grossly intact. EOM EOMI. Lens clear. Sclera non-icteric. Neck: Neck no masses or enlarged lymph nodes and supple, trachea midline, and carotid bruits (bilaterally). Thyroid no enlargement or nodules and non-tender; not palpable. Skin: Inspection and Palpation no rash, lesions, ulcers, jaundice, or abnormal nevi. Assessment / Plan 1. Carotid artery stenosis - Bilateral I65.23: Occlusion and stenosis of bilateral carotid arteries CAROTID STENOSIS: CARE INSTRUCTIONS Return to Office None recorded. Encounter Sign-Off Encounter signed-off by Yang Enciso MD, 06/10/2016. YANG ENCISO MD at 1206 CC: [id number] DICTATION DATE: 06/10/16 1000 MAINTENANCE APPRENTICE: GUANACO 06/11/16 1502 PRE IN [facility] [address] [place] [address]
[2016-06-17 14:35] LABS: HEMATOCRIT 38.4 % (36.0-48.0); HEMOGLOBIN 12.4 g/dL (12-16); MCH 29.5 pg (26.0-34.0); MCHC 32.3 g/dL (31.0-37.0); MCV 91.4 fL (80.0-100.0); MEAN PLATELET VOLUME 8.9 fL (7.4-10.4); RBC 4.2 10x6/uL (4.00-5.40); RDW 15.2 % (11.5-14.5); WBC 9.4 10x3/uL (4.8-10.8)
[2016-06-17 14:50] LABS: APTT 28.1 SECONDS (22.8-39.4); INR 1.05 (0.85-1.17); PROTIME 13.6 SECONDS (11.6-15.0)
[2016-06-17 14:54] LABS: APPEARANCE HAZY (CLEAR); BILIRUBIN NEGATIVE (NEGATIVE); COLOR YELLOW (YELLOW); GLUCOSE NEGATIVE (NEGATIVE); KETONE NEGATIVE (NEGATIVE); LEUKOCYTE ESTERASE 2+ (NEGATIVE); NITRITE NEGATIVE (NEGATIVE); PROTEIN TRACE mg/dL (NEGATIVE); SPECIFIC GRAVITY 1.015 (1.005-1.020); UROBILINOGEN NORMAL (NORMAL)
[2016-06-17 14:55] LABS: BACTERIA FEW /hpf (NONE SEEN); EPITHELIAL CELLS 0-5 /hpf (0-5); RED CELLS - URINE 0-5 /hpf (0-5)
[2016-06-17 14:59] LABS: ALBUMIN 3.9 g/dL (3.4-5.0); ANION GAP 13.7 mmol/L (8-16); BILIRUBIN - TOTAL 0.2 mg/dL (0.2-1.3); CALCIUM 8.6 mg/dL (8.5-10.1); CARBON DIOXIDE 26.3 mmol/L (21.0-32.0); CREATININE - SERUM 1.1 mg/dL (0.6-1.3); PROTEIN - SERUM 7.9 g/dL (6.4-8.2)
[2016-06-18] VITALS (50 sets, daily range): BP systolic 108–150; BP diastolic 38–76; BMI 25.7; BMI 26.9
[~2016-06-18] VITALS: Ht 172.7 cm; Wt 80.2 kg
[~2016-06-18 06:05] MED LIST changes: +AREDS 2 PO; +ASPIRIN325 MG PO; +FISH OIL 1,0001 CA1 PO; +METAMUCIL1042 GM PO; +TUMS500 MG PO
--- NOTE | 2016-06-18 10:45 | NUR ---
RECIEVED PT FROM OR. ATTACHED TO ICU MONTORS. VSS AT THIS TIME. L-DLSC DRESSING C/D/I INFUSING FLUIDS PER FLOWSHEET. L-RADIAL A-LINE IN PLACE. EXT PINK AND WARM WITH GOOD SENSATION. DRESSING TO RIGHT NECK C/D/I. COLIN DRAIN IN PLACE TO RIGHT UPPER CHEST. BLOODY DRAINAGE NOTED TO BULB. GARCIA CATH PATENT DRAINING YELLOW, CLEAR URINE. TEDS/SCDS IN PLACE. PPP. CALL LIGHT IN REACH. BED IN LOW POSITION. WILL CONT TO ASSESS. ASSESSMENT COMPLETE PER FLOWSHEET.
--- NOTE | 2016-06-18 11:30 | NUR ---
PT SEDATED, BUT IS ABLE TO FOLLOW COMMANDS. REPOSITIONED IN BED. CALL LIGHT IN REACH. BED IN LOW POSITION. BED ALARM ON.
--- NOTE | 2016-06-18 14:10 | NUR ---
MEDICATIONS ADMINISTERED PER ORDERS. NO ISSUES NOTED WHEN SWALLOWING MEDICATIONS. ICE PACK REMIANS ON DRESSING. NO SWELLING NOTED AROUND INCISION SITE. WILL CONT TO MONITOR.
--- NOTE | 2016-06-18 15:55 | NUR ---
TYLENOL ADMINSITERED PER ORDERS. C/O INCISIONAL PAIN. WILL REASSESS PAIN.
--- NOTE | 2016-06-18 17:00 | NUR ---
PT REPOSOTIONED IN BED FOR COMFORT. CALL LIGHT IN REACH. FRESH ICE WATER PLACED IN REACH.
--- NOTE | 2016-06-18 19:30 | NUR ---
ASSESSMENT COMPLETED. ALERT AND ORIENTED TO PERSON, PLACE AND TIME. O2@5L VIA NC, DEANGELO LUNGS DIMINISHED IN THE BASES. SEE ASSESSMENT SHEET. LT RADIAL A-LINE ZEROED AND CALIBRATED WITH GOOD WAVE FORM. LT DLSC WITH IVF PER FLOW SHEET, CVP ZEROED AND CALIBRATED WITH GOOD WAVE FORM. CRITICORE JOSE INTACT. DENIES ANY NEEDS AT THIS TIME. SR ON THE MONITOR.
--- NOTE | 2016-06-18 21:00 | NUR ---
NO VISITOR'S AT THIS TIME.
--- NOTE | 2016-06-18 23:09 | NUR ---
REASSESSMENT COMPLETED. DENIES ANY NEEDS.
[2016-06-19] VITALS (51 sets, daily range): BP systolic 114–157; BP diastolic 39–78; Ht 172.7 cm; Wt 80.2 kg
--- NOTE | 2016-06-19 00:20 | NUR ---
COMPLAINING OF INCISIONAL PAIN. REFUSED ULTRAM, REQUESTING TYLENOL. WILL CONT TO MONITOR.
--- NOTE | 2016-06-19 02:00 | NUR ---
EYES CLOSED, RESP EVEN AND UNLABORED. SR ON THE MONITOR.
--- NOTE | 2016-06-19 04:00 | NUR ---
I AND O'S COMPLETED. DENIES ANY NEEDS AT THIS TIME.
--- NOTE | 2016-06-19 05:30 | NUR ---
DEVI RODRIGUEZ HERE. COLIN DEUTSCH. TOLLERATED WELL. SR ON THE MONITOR.
[2016-06-19 06:13] LABS: BASOPHILS 0.3 % (0.0-2.0); EOSINOPHILS 1.8 % (0-7); HEMATOCRIT 32.2 % (36.0-48.0); HEMOGLOBIN 10.2 g/dL (12-16); IMMATURE GRANULOCYTES 0.1 % (0-5); LYMPHOCYTES 18.9 % (15-50); MCHC 31.7 g/dL (31.0-37.0); MCV 91.5 fL (80.0-100.0); MEAN PLATELET VOLUME 8.7 fL (7.4-10.4); MONOCYTES 10.1 % (2-11); NEUTROPHILS 68.8 % (40-80); RBC 3.52 10x6/uL (4.00-5.40); RDW 15.6 % (11.5-14.5); WBC 7.2 10x3/uL (4.8-10.8)
[2016-06-19 06:15] LABS: PLATELET COUNT 198 10x3/uL (130-400)
[2016-06-19 06:23] LABS: ANION GAP 14.2 mmol/L (8-16); CALCIUM 8.2 mg/dL (8.5-10.1); CARBON DIOXIDE 24.7 mmol/L (21.0-32.0); CREATININE - SERUM 1.1 mg/dL (0.6-1.3); POTASSIUM - SERUM 3.9 mmol/L (3.5-5.1)
--- NOTE | 2016-06-19 07:15 | NUR ---
REPORT RECIEVED FROM JUNIOR SALES REPRESENTATIVE NURSE. PT RESTING IN BED QUIETLY. NO S/SX OF ACUTE DISTRESS NOTED. DRESSING TO R NECK C/D/I. COLIN DRAIN REMOVED THIS AM. DRESSING C/D/I. NO SWELLING/HEMATOMA NOTED TO SITE. VSS ON CM. CARDIZEM INFUSING AT 5CC/HR TO L-DLSC. F/C PATENT. SCDS/TEDS IN PLACE. WILL CONT TP ASSESS. CALL LIGHT IN REACH. BED IN LOW POSITION.
--- NOTE | 2016-06-19 08:30 | NUR ---
A-LINE AND F/C REMOVED PER ORDERS. CATHTER TIP INTACT. WILL ASSESS FOR CHANGES.
--- NOTE | 2016-06-19 09:15 | NUR ---
ICE PACK REPLENISHED. PLACED OVER RIGHT SIDE OF NECK.
--- NOTE | 2016-06-19 11:30 | NUR ---
PT SITTING UP IN RECLINER. BREAKFAST TRAY PLACED ON BEDSIDE TABLE. DENIES FURTHER NEEDS.
--- NOTE | 2016-06-19 12:15 | NUR ---
FSBS CHECKED. 135 WERE RESULTS. NO NEED FOR S/S INSULIN AT THIS TIME.
--- NOTE | 2016-06-19 13:50 | NUR ---
PT UP WALKING WITH PT. NO SIGNS OF DISTRESS NOTED. WILL CONT TO ASSESS.
--- NOTE | 2016-06-19 14:30 | NUR ---
ASSISTED PT FROM BED TO BATHROOM, VOIDED CLEAR, YELLOW URINE. ASSISTED TO RECLINER AND ATTACHED TO CM.
--- NOTE | 2016-06-19 16:00 | NUR ---
CENTRAL LINE DRESSING CHANGED. BIOPATCH IN PLACE ALONG WITH SWAB CAPS.
--- NOTE | 2016-06-19 18:14 | NUR ---
ASSISTED BACK TO BED WITH MINIMAL ASSIST. CALL LIGHT AND PERSONAL BELONGINGS PLACED IN REACH. BED IN LOW POSITION. WILL CONT TO ASSESS.
--- NOTE | 2016-06-19 19:33 | NUR ---
REPORT RECIEVED. ASSESSMENT COMPELTE PER FLOW SHEET. VSS. PT AWAKE ALERT ORIENTED X4. DENIES PAIN, GIVEN DECAF COFFEE PER REQUEST. HEART S1S2 HR 76 NSR. O2 VIA RA O2 SAT 100% RR 18 NON LABORED BILAT LUNGS CLEAR. BS ACTIVE X4. BILAT RADIAL AND PEDAL PULSES PALP +2. ASSISTED TO BATHROOM WITH NO ASSISTANCE GAIT STEADY. DENIES FURTHER NEEDS. AMBULATES ON OWN BACK TO BED. DENIES NEEDS
--- NOTE | 2016-06-19 21:00 | NUR ---
GIVEN PRN TYLENOL PER REQUEST. DENIES FURTHER NEEDS.
--- NOTE | 2016-06-19 23:22 | NUR ---
REASSESSMENT COMPLETE PER FLOW SHEET. VSS. NO NEW CHANGE AT THIS TIME. WILL CONTINEU TO MONITOR.
[2016-06-20] VITALS (12 sets, daily range): BP systolic 116–157; BP diastolic 46–76
--- NOTE | 2016-06-20 01:40 | NUR ---
PT C/O OF NAUSEA REFUSES ZOFRAN GIVEN ICE CHIPS FOR COMFORT DENIES FURTHER NEEDS.
--- NOTE | 2016-06-20 03:39 | NUR ---
PT C/O UNABLE TO HAVE BM SOURCE OF NAUSEA AND STOMACH CRAMPING GIVEN PRUNE JUICE PER REQUEST ASSISTED TO BR SMALL BM NOTED. NEEDS MET
--- NOTE | 2016-06-20 03:56 | NUR ---
PT ASSISTED BACK TO BED, AGITATED FROM IRREGULAR BOWEL PATTERNS AND UPSET STOMACH. GIVEN APPLE JUICE PER REQUST. DENIES FURTHER NEEDS.
--- NOTE | 2016-06-20 05:03 | NUR ---
DR ENCISO PAGED UPDATE GIVEN, PT AGGITATED C/O OF ABD PAIN UNABLE TO HAVE REGULAR BM PT DENIED METAMUSEL GIVEN APPLE JUICE PER REQUEST REFUSES PAIN MEDICATION AT THIS TIME. BP ELEVATED OVER 140 CONSISTANTLY FOR PAST 4 READINGS WITH CUFF REPOSITIONED. T ORDER FOR CLEVIPREX TO BE ADM
[2016-06-20 07:03] LABS: ANION GAP 14.6 mmol/L (8-16); CALCIUM 8.4 mg/dL (8.5-10.1); CARBON DIOXIDE 26.5 mmol/L (21.0-32.0); CREATININE - SERUM 1.1 mg/dL (0.6-1.3); POTASSIUM - SERUM 4.1 mmol/L (3.5-5.1)
[2016-06-20 07:07] LABS: BASOPHILS 0.1 % (0.0-2.0); EOSINOPHILS 2.3 % (0-7); HEMATOCRIT 36.9 % (36.0-48.0); HEMOGLOBIN 11.9 g/dL (12-16); IMMATURE GRANULOCYTES 0.1 % (0-5); LYMPHOCYTES 18.7 % (15-50); MCH 29.6 pg (26.0-34.0); MCHC 32.2 g/dL (31.0-37.0); MCV 91.8 fL (80.0-100.0); MEAN PLATELET VOLUME 8.9 fL (7.4-10.4); MONOCYTES 8.5 % (2-11); NEUTROPHILS 70.3 % (40-80); PLATELET COUNT 234 10x3/uL (130-400); RBC 4.02 10x6/uL (4.00-5.40); RDW 15.2 % (11.5-14.5)
[2016-06-20 07:09] LABS: WBC 9.6 10x3/uL (4.8-10.8)
--- NOTE | 2016-06-20 07:15 | NUR ---
REPORT RECIEVED FROM HEARSE DRIVER NURSE. PT RESTING IN BED QUIETLY. NO S/SX OF ACUTE DISTRESS NOTED AT THIS TIME. SHIFT ASSESSMENT COMPLETE PER FLOWSHEET. CALL LIGHT IN REACH. BED IN LOW POSITION. WILL CONT TO ASSESS FOR CHANGES THROUGHOUT SHIFT.
--- NOTE | 2016-06-20 08:00 | NUR ---
ASSISTED TO RECLINER WITH NO ISSUES NOTED. BREAKFAST TRAY PLACED IN REACH.
--- NOTE | 2016-06-20 09:00 | NUR ---
WALKED WITH PT. NO DISTRESS NOTED UPON AMBULATION.
[2016-06-20] MEDS ORDERED: ASPIRIN81 MG PO (09:11)
[2016-06-20] MEDS ORDERED: ULTRAM50 MG PO (09:14)
--- NOTE | 2016-06-20 09:30 | NUR ---
DRESSIN TO RIGHT NECK REMOVED PER DR. ENCISO. INCISION SITE WELL APPROXIMATED WITH ROBB SWELLING AN NO EVIDENT SIGNS OF INFECTION. WILL CONT TO ASSESS.
--- NOTE | 2016-06-20 10:24 | NUR ---
Patient Name: CARLOS MARCH Admission Status: Elective Accout number: [id number] Admission Date: 06-18-2016 : 1940 Admission Diagnosis:OCCLUSION AND STENOSIS OF BILATERAL CAROTID ARTERIES Attending: RICHY Current LOS: 2 Anticipated DC Date: 06-20-2016 Planned Disposition: Home Primary Insurance: MEDICARE A & B Is the patient Alert and Oriented? Yes * How many steps to enter\\exit or inside your home? NONE * PCP DR SHER * Pharmacy [facility] * Preadmission Environment Home Alone * ADLs Independent * Equipment Other * Other Equipment GRAB BARS IN HER SHOWER * List name and contact numbers for known caregivers / representatives who currently or will assist patient after discharge: ROWAN LAY, FRIEND, * Community resources currently utilized None * Additional services required to return to the preadmission environment? Yes * Can the patient safely return to the preadmission environment? Yes * Has this patient been hospitalized within the prior 30 days at any hospital? Yes Discharge Planning Comments: CM MET WITH PATIENT TO ASSESS DC PLAN/NEEDS. PT STATED SHE LIVES AT HOME ALONE IS REPORTS PRIOR TO ADMISSION BEING VERY INDEPENDENT IN HER CARE/ADL'S. SHE STATED HER HOME IS A SAFE PLACE AND SHE PLANS TO RETURN HOME ALONE AT DISCHARGE AND HAS A FRIEND WHO CAN ASSIST HER SOME ONCE SHE IS HOME. SHE STATED SHE NORMALLY DRIVES HERSELF AND THAT A FRIEND WILL DRIVE HER HOME AT DISCHARGE. SHE STATED THAT SHE HAS NO DME EQUIPMENT IN HER HOME AND DENIED NEED FOR ANY DME AT DISCHARGE. SHE VOICED CONCERN REGARDING HER ABILITY TO GET TO/FROM [facility] STORE, ETC AND POSSIBLE NEED FOR SOMEONE TO COME TO HER HOME TO ASSIST WITH [employer] SHOPPING/MEAL PREPARATION/HOUSE CLEANING. SHE INQUIRED ABOUT HH SERVICES AND CM EDUCATED PT ON WHAT IS INCLUDED IN HH SERVICES. SHE STATED SHE DOES NOT NEED A NURSE TO COME TO HER HOME, "MORE LIKE AN AIDE". CM DISCUSSED [employer] SERVICES WITH PATIENT AND PROVIDED HER WITH LIST OF LOCAL PRIVATE DUTY AIDES/AGENCIES. CM ALSO PROVIDED PT WITH CONTACT NAME AND NUMBER TO [facility] WHEELS [facility] SO THAT SHE CAN CALL AND GIVE ALL NEEDED INFO TO [facility] TO DETERMINE IF SHE QUALIFIES FOR THE MEALS ON WHEELS PROGRAM. CM ALSO PROVIDED PT WITH A LIST OF LOCAL HH AGENCIES IN THE EVENT THAT ONCE SHE GETS HOME SHE FEELS SHE COULD BENEFIT FROM HH SERVICES. CM INFORMED THAT SHE CAN SIMPLY CALL HER PCP TO INQUIRE ABOUT HH AND THAT PCP'S OFFICE CAN ASSIST IN ARRANGING HH SERVICES IF THEY FEEL HH IS NEEDED POST DISCHARGE. DC IMM SIGNED AND PLACED IN PT'S CHART. CM WILL FOLLOW AND ASSIST DC NEEDS ARISE. Life Manager: Leatha Madison RN, CM
--- NOTE | 2016-06-20 12:00 | NUR ---
DISCHARGED FROM CVICU VIA WHEELCHAIR FOR TRANSPORTATION WITH FRIEND. ALL DISCHARGE INSTRUCTIONS REVIEWED WITH PT.
--- NOTE | 2016-06-22 11:55 | OP ---
PATIENT NAME: CARLOS MARCH MEDICAL RECORD: [id number] :40 [facility] ADMISSION DATE:06/18/16 SURGEON: YANG ENCISO MD DATE OF OPERATION: 06/18/2016 SURGEON: Yang Enciso MD. ANESTHESIA: General endotracheal, Dr. Rutledge. OPERATION PERFORMED: Right carotid endarterectomy with patch angioplasty. PREOPERATIVE DIAGNOSIS: Severe bilateral carotid stenosis. POSTOPERATIVE DIAGNOSIS: Severe bilateral carotid stenosis. INDICATION FOR OPERATION: Severe right internal carotid artery stenosis. FINDINGS AT OPERATION: Severe right internal carotid artery stenosis greater than 90% area of stenosis of the takeoff of the internal carotid artery. There were no EEG changes with clamping or unclamping of the carotid artery. ESTIMATED BLOOD LOSS: Less than 100 mL. DESCRIPTION OF PROCEDURE: After informed consent, adequate preoperative medication evaluation, the patient was brought to the operating room, placed on the table in the supine position. After induction of general endotracheal anesthesia and application of appropriate monitoring devices, the right neck and chest were prepped and draped in a sterile field, utilizing Betadine scrub, alcohol, and Betadine solution. Betadine-impregnated drape was also used. An oblique incision was made in the skin crease. Dissection carried down the fascia. Hemostasis maintained with electrocautery. Facial vein was identified and divided. Utilizing sharp dissection, the common carotid, internal and external carotid arteries were dissected free from surrounding structures, protecting the neurological structures. The patient was given a calculated dose of heparin, after 3 minutes, clamps were applied. After 2 minutes, no EEG changes. The arteriotomy was made and extended with Robin scissors. Artery underwent endarterectomy sharply. Artery underwent extensive debridement and irrigation. Utilizing a vascular patch, a running 7-0 Prolene suture, the arteriotomy was closed with patch angioplasty technique. All maneuvers to remove trapped air were performed. The clamps were removed sequentially. There were no EEG changes. The patient was given a calculated dose of protamine to reverse the heparin. Hemostasis was assured. A #7 Adi-Correa drain was left in the depth of wound and brought through the base of the neck. Neck was again irrigated. Instrument count and sponge count were correct times 2. Neck was closed in layers utilizing 3-0 Vicryl on the platysma, 5-0 subcuticular Monocryl on the skin. Sterile dressings were applied. The patient tolerated the procedure well and transferred to the ____ in satisfactory condition. TRANSINT:[id number] Voice Confirmation ID: [id number] DOCUMENT ID: [id number] OPERATIVE REPORT [id number] CARLOS MARCH EDWARD MD at 1155 CC: [id number] DICTATION DATE: 06/18/16 1048 DOCK BUILDER: 06/18/16 1930 DIS IN 06/20/16 [place] [id number] [place] [id number]
--- NOTE | 2016-07-13 11:06 | DS ---
PATIENT:CARLOS LIPSCOMB :40 MEDICAL RECORD: [id number] DISCHARGE SUMMARY ADMISSION DATE: 06/18/16 DISCHARGE DATE: 06/20/16 DISCHARGE DIAGNOSES: 1. Severe bilateral carotid stenosis. 2. Hypercholesterolemia. 3. Essential hypertension. 4. Hypothyroidism. 5. Type 2 diabetes mellitus. DISCHARGE MEDICATIONS: Please see medical reconciliation form. DISPOSITION: The patient is discharged home. She has an appointment to see Dr. Buitrago in 2-3 weeks. HOSPITAL COURSE: Ms. Lipscomb was admitted to the hospital and underwent right carotid endarterectomy with patch angioplasty. Postoperatively, she did well, had no problems with bleeding, infection, or arrhythmias. She was weaned from her IV antihypertensive medicines began ambulating and taking a diet. She is neurologically intact. Incisions are healing well. She has been given discharge instructions and wound precautions, and will be seen as above. TRANSINT:[id number] Voice Confirmation ID: [id number] DOCUMENT ID: [id number] GERRY BUITRAGO MD at 1106 CC: [id number] DICTATION DATE: 07/06/16 1101 MANAGER FOOD BEVERAGE: 07/06/16 1733 DIS IN 06/20/16 [facility] [address] [place] [address]
== END 2016-06-20 12:00 | disposition home or self-care (01) | DRG 39 ==
LOC: D.SDCHOLD 06:05 → D.CVICU 06:05 → D.SDCHOLD 07:30 → D.CVICU 09:41
PROVIDERS: Family Medicine; ADMIT Internal Medicine Cardiovascular Disease
PROC: 03UK0JZ Supplement Right Internal Carotid Artery with Synthetic Substitute, Open Approach (ICD-10-PCS; 2016-06-18)
PROC: 03CK0ZZ Extirpation of Matter from Right Internal Carotid Artery, Open Approach (ICD-10-PCS; principal; 2016-06-18 07:30)
DX: I65.23 Occlusion and stenosis of bilateral carotid arteries (principal); E78.00 Pure hypercholesterolemia, unspecified; I10 Essential (primary) hypertension; E03.9 Hypothyroidism, unspecified; E11.9 Type 2 diabetes mellitus without complications; K59.00 Constipation, unspecified

== ENCOUNTER → 2016-12-02 15:14 | Outpatient (CLI) | payer MEDICARE, BC ==
[2016-06-19 10:04] VITALS: BMI 26.9
[~2016-12-02 15:14] MED LIST changes: +ASPIRIN81 MG PO; +ULTRAM50 MG PO
== END | disposition home or self-care (01) ==
LOC: D.US 15:14
DX: I65.23 Occlusion and stenosis of bilateral carotid arteries (principal)

== ENCOUNTER 2017-06-10 10:42 | Emergency (ER) | payer MEDICARE, BC ==
[2016-06-19 10:04] VITALS: BMI 26.9
[2017-06-10 11:14] LABS: BASOPHILS 0.1 % (0-2); EOSINOPHILS 0.9 % (0-7); HEMATOCRIT 34.6 % (36.0-48.0); HEMOGLOBIN 11.1 g/dL (12-16); IMMATURE GRANULOCYTES 0.1 % (0-5); LYMPHOCYTES 6.5 % (15-50); MCH 28.3 pg (26.0-34.0); MCHC 32.1 g/dL (31.0-37.0); MCV 88.3 fL (80.0-100.0); MEAN PLATELET VOLUME 8.4 fL (7.4-10.4); MONOCYTES 4.6 % (2-11); NEUTROPHILS 87.8 % (40-80); PLATELET COUNT 235 10x3/uL (130-400); RBC 3.92 10x6/uL (4.00-5.40); RDW 15.2 % (11.5-14.5); WBC 7.4 10x3/uL (4.8-10.8)
[2017-06-10 11:32] LABS: ALBUMIN 3.2 g/dL (3.4-5.0); ANION GAP 12.2 mmol/L (8-16); BILIRUBIN - TOTAL 0.29 mg/dL (0.2-1.3); CALCIUM 8.4 mg/dL (8.5-10.1); CARBON DIOXIDE 27.2 mmol/L (21.0-32.0); CREATININE - SERUM 0.8 mg/dL (0.6-1.3); POTASSIUM - SERUM 4.4 mmol/L (3.5-5.1); PROTEIN - SERUM 6.6 g/dL (6.4-8.2)
== END 2017-06-10 14:18 | disposition home or self-care (01) ==
LOC: D.ER 10:42
PROVIDERS: Family Medicine
DX: R10.84 Generalized abdominal pain (principal); R11.2 Nausea with vomiting, unspecified; R19.7 Diarrhea, unspecified; E11.9 Type 2 diabetes mellitus without complications

== ENCOUNTER → 2017-08-14 14:38 | Outpatient (CLI) | payer MEDICARE, BC ==
[2016-06-19 10:04] VITALS: BMI 26.9
== END | disposition home or self-care (01) ==
LOC: D.US 08-13 13:30
DX: I65.23 Occlusion and stenosis of bilateral carotid arteries (principal)

== ENCOUNTER → 2017-10-09 14:14 | Outpatient (CLI) | payer MEDICARE, BC ==
[2016-06-19 10:04] VITALS: BMI 26.9
== END | disposition home or self-care (01) ==
LOC: D.CT 14:14
DX: R05 Cough (principal)